=== PATIENT | female | born 1990 | race Caucasian/White ===

== ENCOUNTER 2023-05-11 15:02 | Emergency (ER) | payer OTHER, SELFPAY ==
[2023-05-11] VITALS (11 sets, daily range): BP systolic 100–140; BP diastolic 72–100
[2023-05-11 15:39] LABS: % Basophils 0.3 % (0-2); % Eosinophils 0.4 % (0-6); % Immature Granulocytes 0.2 % (0-0.5); % Lymphocytes 28.1 % (20.5-51.1); % Monocytes 5.1 % (1.7-9.3); % Neutrophils 65.9 % (42.2-75.2); Absolute Lymphocytes 2.6 10^3/uL (1.2-3.4); Absolute Monocytes 0.5 10^3/uL (0.1-0.6); Hematocrit 34.3 % (37.0-47.0); Mean Corpuscular Hgb 30.2 pg (27.0-31.0); Mean Corpuscular Volume 86.2 fL (81.0-99.0); Mean Platelet Volume 8.6 fL (7.4-10.4); Nucleated Red Blood Cells % 0 %; Platelet Count 249 10^3/uL (130-400); Red Blood Cell Count 3.98 10^6/uL (4.20-5.40); Red Cell Dist. Width 12.2 % (11.5-14.5); White Blood Cell Count 9.2 10^3/uL (4.8-10.8)
[2023-05-11 15:51] LABS: INR 1.11; PT 14.3 Sec (11.4-14.6)
[2023-05-11 15:54] LABS: ALT (SGPT) 46 U/L (0-35); AST (SGOT) 39 U/L (14-36); Albumin 3.9 g/dl (3.5-5.0); Alkaline Phosphatase 56 U/L (38-126); Blood Urea Nitrogen 15 mg/dl (7-17); Carbon Dioxide 25 mmol/L (22-30); Chloride 108 mmol/L (98-107); D-Dimer 0.98 ug/mlFEU (0.00-0.50); Glucose 103 mg/dl (70-99); Potassium 3.9 mmol/L (3.5-5.1); Sodium 137 mmol/L (135-145); Total Bilirubin 0.4 mg/dl (0.2-1.3); Total Protein 6.8 g/dl (6.3-8.2); eGFR > 60.00
[2023-05-11 18:19] LABS: Beta HCG Quantitative < 2.39 mIU/ml
--- NOTE | 2023-05-11 18:30 | ED.GENMED ---
History of Present Illness
General
Chief Complaint: Breathing Problem
Source: patient
Exam Limitations: none
Time Seen by Provider: 05/11/23 18:00
Travel History
Have you had any contact with someone who has COVID-19?: No
Do you have any symptoms of coronavirus? Fever > 100 degrees, chills, cough, shortness of breath, sore throat, loss of taste or smell, muscle aches, or headache?: No
History of Present Illness
History of Present Illness:
This is a 32 year old female that comes in with c/o SOB. States that she has surgery on her left foot on Monday. Then last night she started with SOB but this stopped after about 40 min. States that her pulse ox was normal. Today around 10am she
started with SOB again. Patient went to see her Surgeon and her had dressing changed. States that she told him how she was feeling and she was told to come to the ER. States that her pulse ox today was going up and down and was in the low 90's.
States that she has some discomfort at the base of the sternum/upper abd. Denies any fever, chills, nausea, vomiting, diarrhea, headache, dizziness, urinary burning.
Past History
Past History
ED Past Medical History: Other (Meningitis, Renal calculus, Reactive airway disease)
ED Past Surgical History: Gynecological (LEEP) and Orthopedic (Left foot surgery for removal of cyst)
Social History
Tobacco: Non-smoker
Alcohol: Occasional
Drug: None
Personal:
Living: with family
Phy Exam
General Physical Exam
General Presentation: no apparent distress
General age: appears stated age
General Skin: warm and dry
General Habitus: normal
General Mental: alert
General Hydration: appears well hydrated
ENT Exam
ENT Exam: TM's normal, pharynx normal and neck supple
Eye Exam
Eye Exam: EOMI
Cardiovascular Exam
Cardiovascular Exam: regular rate/rhythm, no edema, no murmur and normal peripheral pulses
Pulmonary Exam
Pulmonary Exam: lungs clear, no respiratory distress, no rales, chest non tender, no crackles, no rhonchi, no wheezing and no cough
Gastrointestinal Exam
Gastrointestinal Exam: normal bowel sounds, non tender, soft, no organomegaly, no pulsatile mass and non distended
Musculoskeletal Exam
Musculoskeletal Exam: full ROM and no edema
Skin Exam
Skin Exam: normal color, warm/dry, no rash and no petechia
Psychiatric Exam
Psychiatric Exam: normal mood/affect
Course
Orders/Labs/Results
Orders:
Orders
05/11/23 15:25
Complete Blood Count/With Diff Urgent
Comprehensive Metabolic Panel Urgent
D-Dimer Urgent
Comment: D-DIMER ADDED ON BY FLOOR 3:30PM 05-11-23
PT/INR [Prothrombin Time] Urgent
05/11/23 15:30
Add On- LAB Urgent
Tests Added?: d dimer
05/11/23 17:12
Add On- LAB Urgent
Comments:: quant.
Tests Added?: quant. preg.
05/11/23 17:28
Beta HCG Quantitative Urgent
Comment: ADD ON
05/11/23 18:29
CT Chest Pe Study Urgent
Comment:
Reason For Exam: SOB, elevated D-dimer
05/11/23 18:30
0.9% Sodium Chloride 500 ml [Nss] 500 ml IV BOLUS
05/11/23 18:33
Pantoprazole [Protonix IV] 40 mg IV NOW STA
05/11/23 18:36
COVID-19 Antigen Urgent
Source: Nasal Swab
05/11/23 18:39
Electrocardiogram (*1) Urgent
Reason for Study: Shortness of Breath
EKG- Treatment ONCE
05/11/23 18:57
US Legs, Left [US Periph Venous LOWER Ext LT] Urgent
Comment:
Reason For Exam: dvt?
Abnormal Lab Results
05/11/23
15:25
RBC 3.98 L 10^6/uL
(4.20-5.40)
Hct 34.3 L %
(37.0-47.0)
D-Dimer 0.98 H ug/mlFEU
(0.00-0.50)
Chloride 108 H mmol/L
(98-107)
Glucose 103 H mg/dl
(70-99)
AST 39 H U/L
(14-36)
ALT 46 H U/L
(0-35)
05/11/23 15:25
05/11/23 15:25
D-dimer elevation. Glucose nonfasting. AST/ALT slightly elevated. PT 14.3 with INR 1.11, HCG <2.39
Vital Signs
Initial and Last Documented VS:
Initial Vital Signs
Pulse Resp BP Pulse Ox
68 18 140/83 100
05/11/23 15:16 05/11/23 15:16 05/11/23 15:16 05/11/23 15:16
Last Documented Vital Signs
Pulse Resp BP Pulse Ox
77 17 100/86 98
05/11/23 22:00 05/11/23 22:00 05/11/23 21:35 05/11/23 22:00
MDM/Problems Addressed
Differential Diagnosis Includes:
PE, COVID, Reactive airway disease
MDM/Problems Addressed:
This is a 32 year old female that comes in with c/o SOB. States that she has surger on her left foot on Monday. Then last night she started with SOB. This went away in about 40 min. Then returned today around 10am. Patient was seen by her surgeon
and told to come to the ER.
Will get labs. A d-dimer was added before seeing patient. Explained that this may be a false positive as she has history of reactive airway disease and this is an inflammatory process that can cause her D-dimer to be elevated she also just had
Surgery which can cause elevation. Will get CT of chest.
Back into see patient. Explained that her US was negative and her CT scan is negative for any Pulmonary embolism. There is a little pleural effusion in the lower lungs that will be reabsorbed by the body. Patient also notified to follow up with the
family docor for out patient Thyroid US due to Heterogenicity of the thyroid. Patient to return with any concerns.
Chronic conditions affecting care:
Reactive airway disease
Acute Exacerbation and/or Progression of Chronic Illness:
Reactive airway disease
*Radiology
Radiology exam reviewed: radiology read reviewed (US- No evidence of deep venous thrombosis o the left lower extremity. CT chest=Examination is negative for pulmonary embolism. Minimal bilateral dependent pleural effusions. Mild dependent
atelectasis in the posterior lungs. Diffuse heterogeneity of the thyroid gland. If ot previously evaluated, ) and other (CT cont- further evaluation with a thyroid ultrasound is advised in this 32 year old patient. )
*Pulse Oximetry
Patient hypoxic: no
*EKG
Interpreted by ED Provider?: Yes
Heart Rate: 71
Rate: normal
Rhythm: sinus
[place]: normal axis
Interval: normal interval
QRS Pattern: normal QRS
Ischemia: no ischemia
*Environmental Health And Safety Leader Interpretation
Rate: normal
Heart Rate: 82
Rhythm: sinus
*Critical Care Note
Total Time (30-74mins, 75-104mins- exclusive of procedures): Not Applicable
ED Attending Note
-
Portions of this chart may have been created with voice recognition software.� Occasional wrong word or��sound alike� substitutions may have occurred due to the inherent limitations of voice recognition software.
Discharge Plan
Departure
Patient Disposition: Home (Routine Discharge)
Date of Disposition: 05/11/23
Time of Disposition: 22:28
Patient with high blood pressure during this ER visit?: No
Condition: Good
Covid-19: Not Applicable
Discharge Problem:
SOB (shortness of breath)
Instructions: Shortness of Breath (Dyspnea) (DC)
Prescriptions:
No Action
acetaminophen [Tylenol] 325 mg Tablet
650 mg PO Q6HPRN PRN (Reason: mild pain)
aspirin 325 mg Tablet
325 mg PO BID
meloxicam [Mobic] 15 mg Tablet
15 mg PO DAILY
Theragen Tablet
1 tab PO DAILY
ascorbic acid (vitamin C) [Vitamin C] 500 mg Tablet
500 mg PO DAILY
promethazine 25 mg Tablet
25 mg PO Q8HPRN PRN (Reason: nausea)
gabapentin 300 mg Capsule
300 mg PO BID
spironolactone 50 mg Tablet
50 mg PO DAILY
oxycodone 5 mg Tablet
5 mg PO Q6HPRN PRN (Reason: severe pain)
cholecalciferol (vitamin D3) [Vitamin D3] 25 mcg (1,000 unit) Tablet
25 mcg PO DAILY
Visbiome 112.5 billion cell Capsule
1 cap PO DAILY
omega 7-voh-jfj-fish oil [Fish Oil] 1,000 mg (120 mg-180 mg) Capsule
1 cap PO DAILY
[id number] no.11-B12 250 mg-50 mg-50 mg-1,360mcg DFE Capsule
1 cap PO DAILY
Referrals:
Janay Santos CRNP [Family Provider] - Follow up in 2-3 days
Activity Restrictions/Additional Instructions:
As discussed, your blood work shows your liver enzymes are very slightly elevated. Your Ultrasound is negative, your CT scan is negative for any pulmonary embolism. There is small bilateral pleural effusion that will be reabsorbed by the body.
Please follow up with the family doctor for recheck. You also will need to have the family doctor order an out patient Ultrasound of the Throid for further evaluation. IF YOU HAVE INCREASED SHORTNESS OF BREATH, FEVER, OR YOU HAVE ANY OTHER CONCERNS
PLEASE RETURN TO THE EMERGENCY ROOM.
Interventions
Interventions:
*Risk Screen - Suicide Last Done: 05/11/23 15:16
*General Assessment Last Done: 05/11/23 15:16
*Neglect/Abuse Screening Last Done: 05/11/23 17:29
ED- Fall Risk Assessment Last Done: 05/11/23 17:29
*ED COVID-19 Vaccine History Last Done: 05/11/23 15:16
ED- Cardiac Assessment Last Done: 05/11/23 17:48
ED- Pulmonary Assessment Last Done: 05/11/23 17:48
[2023-05-11] MEDS: NSS 500 IV (18:35)
[2023-05-11] MEDS: PROTONIX IV 40 MG IV (18:38)
[2023-05-11 19:12] LABS: COVID-19 Antigen Negative (Negative)
== END 2023-05-11 22:52 | disposition home or self-care (01) ==
LOC: EMR 15:02
PROVIDERS: Clinical Nurse Specialist Family Health; Student in an Organized Health Care Education/Training Program; EMERGENCY PHYSICIAN Emergency Medicine; FAMILY PHYSICIAN Nurse Practitioner Family
DX: R06.02 Shortness of breath (principal); J45.909 Unspecified asthma, uncomplicated
CPT/HCPCS: 99285; 96374; 96361; 71275; 80053; 84702; 85025; 85379; 85610; 87811; 93005; 93971; Q9967

== ENCOUNTER → 2023-06-09 13:20 | Outpatient (REF) | payer OTHER, SELFPAY | LOC: HWRAD 13:20 | PROVIDERS: ATTENDING PHYSICIAN Family Medicine | DX: R94.6 Abnormal results of thyroid function studies (principal) | CPT/HCPCS: 76536 ==

== ENCOUNTER → 2024-04-19 11:22 | Outpatient (REF) | payer OTHER, SELFPAY | LOC: HWWDC 11:22 | PROVIDERS: ATTENDING PHYSICIAN Student in an Organized Health Care Education/Training Program; FAMILY PHYSICIAN Nurse Practitioner Family | DX: Z12.31 Encounter for screening mammogram for malignant neoplasm of breast (principal) | CPT/HCPCS: 77063; 77067 ==